=== PATIENT | female | born 1975 | race African-American/Black ===

== ENCOUNTER 2021-01-06 00:27 | Emergency (ER) | payer BC, MEDICAID ==
[~2021-01-06] VITALS: Ht 160 cm; Wt 92.7 kg
[2021-01-06 00:51] VITALS: BP 130/75
== END 2021-01-06 07:23 | disposition home or self-care (01) ==
LOC: ER 00:27
DX: Z53.21 Procedure and treatment not carried out due to patient leaving prior to being seen by health care provider (principal)

== ENCOUNTER 2021-01-06 19:14 | Emergency (ER) | payer BC ==
[~2021-01-06] VITALS: Ht 162.6 cm; Wt 75.9 kg
[2021-01-06 19:35] VITALS: BP 136/85
== END 2021-01-06 20:25 | disposition home or self-care (01) ==
LOC: ER 19:15
DX: E86.0 Dehydration (principal); R07.9 Chest pain, unspecified; Z59.00 Homelessness unspecified
CPT/HCPCS: 71045; 99283

== ENCOUNTER → 2021-01-06 | Emergency (ER) | payer BC, MEDICAID, MEDICARE ==
[~2021-01-06] VITALS: Ht 162.6 cm; Wt 77.3 kg
[2021-01-06 13:21] VITALS: BP 113/72
== END | disposition home or self-care (01) ==
LOC: ER 13:15
DX: R07.9 Chest pain, unspecified (principal); R06.02 Shortness of breath
CPT/HCPCS: 93005; 99283